=== PATIENT | female | born 1950 | race Caucasian/White ===

== ENCOUNTER 2024-11-29 12:18 | Emergency (ER) | payer MEDICARE, SELFPAY ==
[2024-11-29 12:23] VITALS: BP 171/79; PULSE 70; TEMP 36.9; O2SAT 100; BMI 32.4
--- NOTE | 2024-11-29 18:12 | ED_ITS ---
HPI HPI - General Adult General Chief complaint: Extremity Problem, Nontraumatic Stated complaint: L LEG PAIN Time Seen by Provider: 11/29/24 13:48 Source: patient Mode of arrival: walk-in Limitations: no limitations History of Present Illness HPI narrative: Patient is a 74-year-old female presenting to the emergency department for concerns of left lower extremity swelling/pain. States that over the last couple weeks, she has had intermittent, nonspecific pain in the left lower extremity from the knee distally. She states that over the last 2 days, she has noted mild swelling of the left foot/ankle. She denies any injuries. She denies history of DVT/PE. She denies any chest pain or shortness of breath. She denies previous surgeries to the leg. No fevers or chills. No abdominal pain, nausea, or vomiting. Related Data Allergies Allergy/AdvReac Type Severity Reaction Status Date / Time Penicillins Allergy Severe Hives Verified 11/29/24 12:22 cefuroxime (From Ceftin) Allergy Unknown Unknown Unverified 11/29/24 12:28 Opioid HPI Opioid Management Most Recent Opioid Data: Last Pain Scale 2 Today, 12:23 Review of Systems ROS Status of ROS 10 or more systems reviewed and unremark able except as noted in history and below PFSH PFSH Social History Little interest or pleasure in doing things: not at all Feeling down, depressed, or hopeless: not at all Exam Narrative Exam Narrative: CONSTITUTIONAL: Well-appearing, answering questions and following commands appropriately SKIN: Was warm and dry. EYES: Sclerae white. EARS, NOSE, THROAT: Moist oral mucosa. RESPIRATORY: Clear to auscultation bilaterally, no wheezes, crackles, or stridor, no use of accessory muscles CARDIOVASCULAR: Normal rate and regular rhythm. 2+ DP pulses. GASTROINTESTINAL: Abdomen is nondistended. MUSCULOSKELETAL: There is mild edema of the left lower extremity from the mid calf distally. She has full range of motion throughout the left lower extremity. There is no significant tenderness to palpation throughout the extremity. No calf tenderness. No overlying erythema, induration, or other cellulitic changes NEUROLOGIC: Patient is awake and alert. Equal strength and sensation to light touch in the bilateral lower extremities. Ambulates with a steady gait. Constitutional Vital Signs, click to edit/add: Last Vital Signs Temp 98.5 F 11/29/24 12:23 Pulse 70 11/29/24 12:23 Resp 16 11/29/24 12:23 BP 171/79 H 11/29/24 12:23 Pulse Ox 100 11/29/24 12:23 Course Vital Signs Vital signs: Vital Signs Temperature 98.5 F 11/29/24 12:23 Pulse Rate 70 11/29/24 12:23 Respiratory Rate 16 11/29/24 12:23 Blood Pressure 171/79 H 11/29/24 12:23 Pulse Oximetry 100 11/29/24 12:23 Temperature 98.5 F 11/29/24 12:23 Pulse Rate 70 11/29/24 12:23 Respiratory Rate 16 11/29/24 12:23 Blood Pressure 171/79 H 11/29/24 12:23 Pulse Oximetry 100 11/29/24 12:23 Medical Decision Making MDM Narrative Medical decision making narrative: Patient is a 74-year-old female presenting to the emergency department for 2- week history of left lower extremity pain, and 2 weeks of left lower extremity swelling. Vital signs arrival are significant for hypertension, otherwise were within normal limits. She is afebrile hemodynamically stable. Examination as noted above, however she is neurovascular intact in the left lower extremity with good distal perfusion, strength, and sensation. Differential diagnosis includes dependent edema, venous insufficiency, peripheral arterial disease, DVT. She has no erythema or evidence of cellulitis. No trauma to suggest underlying fracture. Duplex venous/arterial ultrasound was ordered to further evaluate. Venous duplex of the left lower extremity independently reviewed and interpreted by myself and radiology demonstrated no evidence of acute DVT. Arterial duplex demonstrated mild distal peripheral arterial vascular disease with no occluded arterial segment. I do believe the patient is stable for discharge at this time. They were instructed to follow up with her PCP for further care. Return precautions were given including any new or worsening symptoms. Patient understands and agrees to the plan. FINAL IMPRESSION: #Acute left lower extremity edema DISPOSITION: Discharged home CONDITION: Good Imaging Data Arterial/Venous duplex LLE: Attestation: I personally reviewed and interpreted this imaging study as follows: Discharge Plan Discharge Chief Complaint: Extremity Problem, Nontraumatic Clinical Impression: Lower extremity edema Patient Disposition: Home, Self-Care Time of Disposition Decision: 15:39 Condition: Good Mode of Transportation: Private Vehicle Print Language: Georgian Instructions: Leg Edema (ED) Referrals: BLAINE HOLGUIN [Primary Care Provider, Family Practice] - 1 week Discharge Date/Time: 11/29/24 16:10
== END 2024-11-29 16:10 | disposition home or self-care (01) ==
PROVIDERS: Emergency Provider Student in an Organized Health Care Education/Training Program; PCP Family Medicine
DX: R60.0 Localized edema (principal); M79.605 Pain in left leg; I73.9 Peripheral vascular disease, unspecified
CPT/HCPCS: 93926; 93971; 99284